=== PATIENT | female | born 1955 | race Caucasian/White ===

== ENCOUNTER 2016-08-06 13:50 | Emergency (ER) | payer BC, OTHER ==
[2016-08-06 13:56] VITALS: RESP 18
[2016-08-06] MEDS ORDERED: methylPREDNISolone SOD SUCCI 125 MG/2 ML VIAL IV STA (14:30)
[2016-08-06] MEDS ORDERED: IPRATROPIUM-ALBUTEROL 3 ML NEB INHALATION STA (14:30)
[2016-08-06] MEDS ORDERED: SODIUM CHLORIDE 0.9% 500 ML IV STA (14:30)
[2016-08-06] MEDS ORDERED: CHLORPHEN-HYDROcod 8-10mg/5ml 5 ML ORAL.SYRG PO STA (14:31)
--- NOTE | 2016-08-06 14:48 | ED ---
URI HPI - General Chief Complaint: Upper Respiratory Infection Stated Complaint: JOSE LUIS Time Seen by Provider: 08/06/16 14:14 Source: patient, family, RN notes reviewed Mode of arrival: wheelchair Limitations: no limitations - History of Present Illness Initial Comments: 61-year-old female presents emergency Department chief complaint shortness breath. Patient states she is has been on and off sick for the last 4 months. Patient states over the last few weeks she's had a severe cold, difficulty with her asthma. Patient saw primary care physician last and is most recent saw Dr. Valentine. Patient was placed on Augmentin, steroids. Patient states is not helping. She states she has severe coughing fit and she' s having increased shortness breath, wheezing. Patient states she is hot and cold flashes but normal fever. Denies any chills or night sweats. Patient states she uses nebulizer and inhalers. She states she's been taking all her medications as directed with no relief. Patient denies chest pain or palpitations. - Related Data Home Medications Medication Instructions Recorded Confirmed Ascorbic Acid [Vitamin C] 500 mg PO DAILY 09/18/13 08/06/16 Aspirin 81 mg PO DAILY 09/18/13 08/06/16 Multivitamin/Iron/Folic Acid 1 tab PO DAILY 09/18/13 08/06/16 [Centrum Complete Multivit Tab] Fish Oil 1400mg 3 tab PO BID 12/08/13 08/06/16 Montelukast [Singulair] 10 mg PO HS 12/08/13 08/06/16 Amoxic-Pot Clav 875-125Mg 1 tab PO Q12HR 08/06/16 08/06/16 [Augmentin 875-125] Calcium Carbonate/Vitamin D3 1 tab PO DAILY 08/06/16 08/06/16 [Calcium 600-Vit D3 200 Tablet] Citalopram Hydrobromide [CeleXA] 20 mg PO HS 08/06/16 08/06/16 Fenofibrate 160 mg PO DAILY 08/06/16 08/06/16 Folic Acid 1 mg PO DAILY 08/06/16 08/06/16 Lisinopril [Zestril] 5 mg PO HS 08/06/16 08/06/16 Mometasone/Formoterol [Dulera 200 2 puff INHALATION RT-BID 08/06/16 08/06/16 Mcg/5 Mcg Inhaler] cloNIDine HCL [Catapres] 0.1 mg PO BID 08/06/16 08/06/16 metFORMIN HCL ER [Glucophage Xr] 500 mg PO PC-SUPPER 08/06/16 08/06/16 predniSONE See Taper PO DAILY 08/06/16 08/06/16 Previous Rx's Medication Instructions Recorded CHLORPHEN-HYDROcod 8-10mg/5ml 5 ml PO Q12HR #120 ml 08/06/16 [Tussionex] Allergies Allergy/AdvReac Type Severity Reaction Status Date / Time benzoyl peroxide Allergy Swelling Verified 08/06/16 14:18 niacin Allergy Swelling Verified 08/06/16 14:18 SPF SUNSCREEN Allergy Unknown Rash/Hives Uncoded 08/06/16 13:56 Review of Systems ROS Statement: Those systems with pertinent positive or pertinent negative responses have been documented in the HPI. ROS Other: All systems not noted in ROS Statement are negative. Past Medical History Past Medical History: Asthma, Hyperlipidemia Additional Past Medical History / Comment(s): SEASONAL ALLERGIES,ENVIRONMENTAL ALLERGIES, BASAL CELL SKIN CANCER. STATES CURRENTLY HAS RASH ON HER ARM. DIVERTICULITIS SEPTEMBER 2013 History of Any Multi-Drug Resistant Organisms: None Reported Past Surgical History: Back Surgery, Tonsillectomy Additional Past Surgical History / Comment(s): CERVICAL FUSION, "TRANSVAGINAL TAPE" Past Anesthesia/Blood Transfusion Reactions: Motion Sickness, Postoperative Nausea & Vomiting (PONV) Past Psychological History: No Psychological Hx Reported Smoking Status: Never smoker Past Alcohol Use History: Rare Past Drug Use History: None Reported - Past Family History Mother Family Medical History: CVA/TIA, Hypertension General Exam Limitations: no limitations General appearance: alert, in no apparent distress Eye exam: Present: normal appearance, PERRL, EOMI. Absent: scleral icterus, conjunctival injection, periorbital swelling ENT exam: Present: normal exam, normal oropharynx, mucous membranes moist, TM's normal bilaterally Neck exam: Present: normal inspection, full ROM. Absent: tenderness, meningismus, lymphadenopathy Respiratory exam: Present: wheezes. Absent: normal lung sounds bilaterally, respiratory distress, rales, rhonchi, stridor Cardiovascular Exam: Present: regular rate, normal rhythm, normal heart sounds. Absent: systolic murmur, diastolic murmur, rubs, gallop, clicks Course Vital Signs 08/06/16 08/06/16 08/06/16 13:52 14:48 14:55 Temperature 98.0 F Pulse Rate 87 88 96 Respiratory 18 Rate Blood Pressure 189/85 O2 Sat by Pulse 96 Oximetry 08/06/16 15:53 Temperature 98.2 F Pulse Rate 84 Respiratory 18 Rate Blood Pressure 150/61 O2 Sat by Pulse 93 L Oximetry Medical Decision Making - Medical Decision Making 61-year-old female presented emergency department with chief complaint cough and congestion coughing fits. Patient has influenza. Patient is out of the treatment. For Tamiflu. Patient states she does feel better after cough syrup , breathing treatment. We discussed continuation breathing treatments at home and I'll write her prescription for cough syrup. Patient follow-up with primary care physician, nutter up. Return parameters were discussed. Patient also was offered admission for her asthma. She did decline. - Lab Data Result diagrams: 08/06/16 15:14 08/06/16 15:14 Lab Results 08/06/16 08/06/16 08/06/16 Range/Units 15:14 15:14 15:14 WBC 5.6 (3.8-10.6) k/uL RBC 4.03 (3.80-5.40) m/uL Hgb 13.0 (11.4-16.0) gm/dL Hct 36.8 (34.0-46.0) % MCV 91.4 (80.0-100.0) fL MCH 32.2 (25.0-35.0) pg MCHC 35.2 (31.0-37.0) g/dL RDW 13.6 (11.5-15.5) % Plt Count 353 (150-450) k/uL Neutrophils % 54 % Lymphocytes % 32 % Monocytes % 10 % Eosinophils % 0 % Basophils % 0 % Neutrophils # 3.0 (1.3-7.7) k/uL Lymphocytes # 1.8 (1.0-4.8) k/uL Monocytes # 0.6 (0-1.0) k/uL Eosinophils # 0.0 (0-0.7) k/uL Basophils # 0.0 (0-0.2) k/uL PT (9.0-12.0) sec INR (<1.1) APTT (22.0-30.0) sec Sodium 143 (137-145) mmol/L Potassium 4.0 (3.5-5.1) mmol/L Chloride 105 (98-107) mmol/L Carbon Dioxide 22 (22-30) mmol/L Anion Gap 16 mmol/L BUN 18 H (7-17) mg/dL Creatinine 0.74 (0.52-1.04) mg/dL Est GFR (MDRD) Af Amer >60 (>60 ml/min/1.73 sqM) Est GFR (MDRD) Non-Af >60 (>60 ml/min/1.73 sqM) Glucose 137 H (74-99) mg/dL Calcium 10.4 H (8.4-10.2) mg/dL Magnesium 1.5 L (1.6-2.3) mg/dL Total Bilirubin 0.6 (0.2-1.3) mg/dL AST 126 H (14-36) U/L ALT 162 H (9-52) U/L Alkaline Phosphatase 39 (38-126) U/L Troponin I (0.000-0.034) ng/mL Total Protein 7.3 (6.3-8.2) g/dL Albumin 4.5 (3.5-5.0) g/dL Influenza Type A RNA Not Detected (Not Detectd) Influenza Type B (PCR) Detected H (Not Detectd) 08/06/16 08/06/16 Range/Units 15:14 15:14 WBC (3.8-10.6) k/uL RBC (3.80-5.40) m/uL Hgb (11.4-16.0) gm/dL Hct (34.0-46.0) % MCV (80.0-100.0) fL MCH (25.0-35.0) pg MCHC (31.0-37.0) g/dL RDW (11.5-15.5) % Plt Count (150-450) k/uL Neutrophils % % Lymphocytes % % Monocytes % % Eosinophils % % Basophils % % Neutrophils # (1.3-7.7) k/uL Lymphocytes # (1.0-4.8) k/uL Monocytes # (0-1.0) k/uL Eosinophils # (0-0.7) k/uL Basophils # (0-0.2) k/uL PT 11.1 (9.0-12.0) sec INR 1.1 (<1.1) APTT 23.6 (22.0-30.0) sec Sodium (137-145) mmol/L Potassium (3.5-5.1) mmol/L Chloride (98-107) mmol/L Carbon Dioxide (22-30) mmol/L Anion Gap mmol/L BUN (7-17) mg/dL Creatinine (0.52-1.04) mg/dL Est GFR (MDRD) Af Amer (>60 ml/min/1.73 sqM) Est GFR (MDRD) Non-Af (>60 ml/min/1.73 sqM) Glucose (74-99) mg/dL Calcium (8.4-10.2) mg/dL Magnesium (1.6-2.3) mg/dL Total Bilirubin (0.2-1.3) mg/dL AST (14-36) U/L ALT (9-52) U/L Alkaline Phosphatase (38-126) U/L Troponin I <0.012 (0.000-0.034) ng/mL Total Protein (6.3-8.2) g/dL Albumin (3.5-5.0) g/dL Influenza Type A RNA (Not Detectd) Influenza Type B (PCR) (Not Detectd) 08/06/16 16:07 EKG performed at 15:03 normal sinus rhythm with a rate of 86, NE interval 138, QRS duration 96, QT/QTC 386/461 Disposition Clinical Impression: Influenza, Asthma Disposition: HOME SELF-CARE Condition: Stable Instructions: Influenza (ED) Additional Instructions: Please return to the Emergency Department if symptoms worsen or any other concerns. Prescriptions: CHLORPHEN-HYDROcod 8-10mg/5ml [Tussionex] 5 ml PO Q12HR #120 ml Time of Disposition: 16:10
[2016-08-06 15:24] LABS: Basophils % (A) 0 %; CH 33.1; CHCM 36.4; Eosinophils % (A) 0 %; HCT 36.8 % (34.0-46.0); HDW 2.83; Luc # (Auto) 0.19; Luc % (Auto) 3; Lymphocytes # (A) 1.8 k/uL (1.0-4.8); Lymphocytes % (A) 32 %; MCH 32.2 pg (25.0-35.0); MCHC 35.2 g/dL (31.0-37.0); MCV 91.4 fL (80.0-100.0); Mean Platelet Volume 6.4; Monocytes # (A) 0.6 k/uL (0-1.0); Monocytes % (A) 10 %; Neutrophils % (A) 54 %; RBC 4.03 m/uL (3.80-5.40); RDW 13.6 % (11.5-15.5); WBC 5.6 k/uL (3.8-10.6); WBC (Perox) 5.54
[2016-08-06 15:33] LABS: INR 1.1 (<1.1); Partial Thromboplastin Time 23.6 sec (22.0-30.0); Prothrombin Time 11.1 sec (9.0-12.0)
--- NOTE | 2016-08-06 15:33 | XR ---
EXAMINATION TYPE: XR chest 2V DATE OF EXAM: 08/06/2016 3:21 PM COMPARISON: 04/18/2016 HISTORY: Difficulty breathing TECHNIQUE: Frontal and lateral views of the chest are obtained. FINDINGS: There is no heart failure nor confluent pneumonic infiltrate. There are no hilar masses. C ervical spine fusion surgery is noted. Costophrenic angles are clear. IMPRESSION: Borderline cardiomegaly. No active cardiopulmonary disease. No change.
[2016-08-06 15:37] LABS: ALT 162 U/L (9-52); AST 126 U/L (14-36); Alkaline Phosphatase 39 U/L (38-126); Anion Gap 16 mmol/L; Blood Urea Nitrogen 18 mg/dL (7-17); Calcium 10.4 mg/dL (8.4-10.2); Carbon Dioxide 22 mmol/L (22-30); Chloride 105 mmol/L (98-107); Glucose 137 mg/dL (74-99); Magnesium 1.5 mg/dL (1.6-2.3); Non-African American GFR(MDRD) >60 (>60 ml/min/1.73 sqM); Sodium 143 mmol/L (137-145); Total Bilirubin 0.6 mg/dL (0.2-1.3); Total Protein 7.3 g/dL (6.3-8.2)
[2016-08-06 15:54] VITALS: BP 150/61; PULSE 84; TEMP 98.2
== END 2016-08-06 16:52 | disposition home or self-care (01) ==
LOC: EC 13:50
DX: J11.1 Influenza due to unidentified influenza virus with other respiratory manifestations (principal); J45.909 Unspecified asthma, uncomplicated; E78.5 Hyperlipidemia, unspecified; Z85.828 Personal history of other malignant neoplasm of skin; Z79.84 Long term (current) use of oral hypoglycemic drugs; Z79.899 Other long term (current) drug therapy; Z79.82 Long term (current) use of aspirin; Z88.8 Allergy status to other drugs, medicaments and biological substances; Z91.048 Other nonmedicinal substance allergy status
CPT/HCPCS: 36415; 94640; 93005; 80053; 83735; 84484; 85025; 85610; 85730; 87502; 71020; 99284; 96374; 96361 ×2; J2930

== ENCOUNTER 2016-08-18 09:29 | Inpatient (IN) | payer OTHER ==
[2016-08-18] MEDS ORDERED: IPRATROPIUM-ALBUTEROL 3 ML NEB INHALATION PRN (11:47)
[2016-08-18] MEDS ORDERED: RX INFO: IV CONTRAST WAS GIVEN 1 EACH MISC MISCELLANE PRN (11:51)
[2016-08-18] MEDS: IPRATROPIUM-ALBUTEROL 3 ML NEB INHALATION SCH ×3 (12:55→19:26)
[2016-08-18] MEDS: SODIUM CHLORIDE 0.9% 1,000 ML IV SCH (13:24)
[2016-08-18] MEDS: methylPREDNISolone SOD SUCCI 125 MG/2 ML VIAL IV SCH ×3 (13:28→23:24)
[2016-08-18 14:08] LABS: Basophils # (A) 0.1 k/uL (0-0.2); Basophils % (A) 1 %; CH 32.4; CHCM 34.3; Eosinophils # (A) 0.1 k/uL (0-0.7); Eosinophils % (A) 1 %; HCT 38.7 % (34.0-46.0); HDW 2.55; Luc # (Auto) 0.39; Luc % (Auto) 4; Lymphocytes # (A) 4.1 k/uL (1.0-4.8); Lymphocytes % (A) 41 %; MCH 31.9 pg (25.0-35.0); MCHC 33.6 g/dL (31.0-37.0); MCV 94.8 fL (80.0-100.0); Mean Platelet Volume 6.3; Monocytes # (A) 0.7 k/uL (0-1.0); Monocytes % (A) 7 %; Neutrophils # (A) 4.6 k/uL (1.3-7.7); Neutrophils % (A) 46 %; RBC 4.09 m/uL (3.80-5.40); RDW 13.4 % (11.5-15.5); WBC 9.9 k/uL (3.8-10.6); WBC (Perox) 10.45
[2016-08-18 14:19] LABS: Anion Gap 10 mmol/L; Blood Urea Nitrogen 18 mg/dL (7-17); Calcium 9.8 mg/dL (8.4-10.2); Carbon Dioxide 23 mmol/L (22-30); Chloride 107 mmol/L (98-107); Glucose 101 mg/dL (74-99); Non-African American GFR(MDRD) >60 (>60 ml/min/1.73 sqM); Potassium 3.9 mmol/L (3.5-5.1); Sodium 140 mmol/L (137-145)
[2016-08-18 15:04] LABS: Hemoglobin A1C 5.8 % (4.2-6.1)
[2016-08-18] MEDS: BENZONATATE 100 MG CAP PO SCH ×2 (15:29→20:27)
[2016-08-18] MEDS: HEPARIN SODIUM,PORCINE 5,000 UNIT/ML 1 ML VIAL SQ SCH ×2 (15:30→23:24)
[2016-08-18] MEDS: CHLORPHEN-HYDROcod 8-10mg/5ml 5 ML ORAL.SYRG PO SCH ×2 (15:30→20:35)
[2016-08-18] MEDS: AZITHROMYCIN 500 MG in SODIUM CHLORIDE 0.9% 250 ML IVPB SCH (15:30)
--- NOTE | 2016-08-18 17:11 | CT ---
EXAMINATION TYPE: CT angio chest DATE OF EXAM: 08/18/2016 4:55 PM COMPARISON: Correlation radiograph 08/06/2016. Also, CT abdomen from 09/18/2013. HISTORY: 61-year-old female with shortness of breath. TECHNIQUE: Contiguous axial scanning of the chest performed with IV Contrast, patient injected with 6 0 mL of Omnipaque 350. Coronal/sagittal MIP reconstructions performed. CT DLP: 276.9 mGycm Automated exposure control for dose reduction was used. FINDINGS: The heart is upper limits of normal in size with trace anterior pericardial fluid. Aorta is normal caliber with conventional arch vessel branching anatomy. Borderline satisfactory opacification of the pulmonary arterial system without evidence for pulmonary embolus. No thoracic lymphadenopathy. Mild diffuse bronchial wall thickening without consolidation or pleural effusion. Mild dependent atel ectasis is noted and additional strandy atelectasis in the left lower lobe. A 1.5 cm hypodensity in the central right hepatic lobe, axial image 130 appears to have been present on 09/18/2013 suggestive of a cyst. There is diffuse low attenuation of the hepatic parenchyma. Bones: Endplate spondylosis throughout the thoracic spine. Partially visualized ACDF hardware. Focal sclerosis with stippled appearance of the L1 vertebral body most suggestive of a fatty matrix hemangi brittanie. IMPRESSION: 1. NO EVIDENCE FOR PULMONARY EMBOLUS. 2. MILD DIFFUSE BRONCHIAL WALL THICKENING COULD REPRESENT BRONCHITIS OR CHRONIC ASTHMA. OTHERWISE, NO ACUTE PULMONARY PROCESS. 3. HEPATIC STEATOSIS. CORRELATE WITH LFT's, LIVER PROFILE, AND PATIENT RISK FACTORS.
--- NOTE | 2016-08-18 17:31 | P.CNPUL ---
History of Present Illness Consult date: 08/18/16 Chief complaint: asthma History of present illness: This 61-year-old female patient was sent over from our office because of increased shortness of breath. The patient was having increased asthma activity and shortness of breath and chest tightness and wheezing. The patient was being followed up by Dr. Valentine on outpatient basis. The patient had a positive methacholine general shows earlier this year and the patient was found to be positive test. Since then the patient was kept on a combination of Dulera and Singulair. She continued to have increased dyspnea, chest tightness and wheezing and poor asthma control. She has received multiple courses of antibiotics and steroids without any improvement. Based on that, the patient was admitted today to the hospital for inpatient treatment with systemic steroids. The computed tomography scan of the chest was also ordered. She is doing well. She has a congested cough. No pleurisy. No hemoptysis. She is known to have multiple vitamin mental ALLERGIES. No aspiration. No heartburn. No skin rashes or eczema. No smoking. No exposure to any respiratory irritants or respiratory toxic material. She has been exposed to secondhand cigarette smoking. She is a lifetime nonsmoker. Review of Systems 12 point review of system was done and the positive findings are reported in the history of present illness Past Medical History Past Medical History: Asthma, Hyperlipidemia, Hypertension, Skin Disorder Additional Past Medical History / Comment(s): SEASONAL ALLERGIES, ENVIRONMENTAL ALLERGIES, ALOT OF ALLERGIES, NIDDM TYPE II, PSORIASIS, BASAL CELL SKIN CANCER WITH REMOVAL, DIVERTICULAR DX, . History of Any Multi-Drug Resistant Organisms: None Reported Past Surgical History: Orthopedic Surgery, Tonsillectomy Additional Past Surgical History / Comment(s): CERVICAL FUSION WITH PLATE, BASAL CELL SKIN CANCER REMOVED FROM FOREHEAD, COLONOSCOPY, "TRANSVAGINAL TAPE" Past Anesthesia/Blood Transfusion Reactions: Motion Sickness, Postoperative Nausea & Vomiting (PONV) Past Psychological History: No Psychological Hx Reported Additional Psychological History / Comment(s): PT AND HER SPOUSE ARE CURRENTLY SELLING THEIR HOME. PT'S SPOUSE IS IN [place] WORKING, ONCE HOUSE SELLS, PT WILL JOIN HIM THERE. THEY HAVE A 11 YR OLD GRANDAUGHTER THAT LIVES WITH THEM. PT DOES NOT HAVE A GLUCOMETER. SHE HAS A NEBULIZER. SHE IS INDEPENDENT. Smoking Status: Never smoker Past Alcohol Use History: Rare Past Drug Use History: None Reported - Past Family History Father Family Medical History: Cancer Additional Family Medical History / Comment(s): PT WAS 5 YRS OLD WHEN HER FATHER OF PANCREATIC CANCER. Mother Family Medical History: CVA/TIA, Dementia, Hypertension Additional Family Medical History / Comment(s): MOTHER HAD SEVERAL TIAS. SHE IS Medications and Allergies Home Medications Medication Instructions Recorded Confirmed Type Ascorbic Acid [Vitamin C] 500 mg PO DAILY 09/18/13 08/18/16 History Aspirin 81 mg PO DAILY 09/18/13 08/18/16 History Multivitamin/Iron/Folic Acid 1 tab PO DAILY 09/18/13 08/18/16 History [Centrum Complete Multivit Tab] Montelukast [Singulair] 10 mg PO HS 12/08/13 08/18/16 History Calcium Carbonate/Vitamin D3 1 tab PO DAILY 08/06/16 08/18/16 History [Calcium 600-Vit D3 200 Tablet] Citalopram Hydrobromide [CeleXA] 20 mg PO HS 08/06/16 08/18/16 History Fenofibrate 160 mg PO DAILY 08/06/16 08/18/16 History Folic Acid 1 mg PO DAILY 08/06/16 08/18/16 History Lisinopril [Zestril] 5 mg PO HS 08/06/16 08/18/16 History Mometasone/Formoterol [Dulera 200 2 puff INHALATION RT-BID 08/06/16 08/18/16 History Mcg/5 Mcg Inhaler] cloNIDine HCL [Catapres] 0.1 mg PO BID 08/06/16 08/18/16 History metFORMIN HCL ER [Glucophage Xr] 500 mg PO PC-SUPPER 08/06/16 08/18/16 History Adalimumab [Humira Crohn's] 40 mg SQ Q14D 08/18/16 08/18/16 History Albuterol Sulfate [Proair Hfa] 1 - 2 puff INHALATION RT-Q6H PRN 08/18/16 History [place]-3 Fatty Acids/Fish Oil [Fish 1 cap PO DAILY 08/18/16 08/18/16 History Oil 1,000 mg Softgel] Allergies Allergy/AdvReac Type Severity Reaction Status Date / Time benzoyl peroxide Allergy Swelling Verified 08/18/16 11:03 niacin Allergy Swelling Verified 08/18/16 11:03 SPF SUNSCREEN Allergy Unknown Rash/Hives Uncoded 08/06/16 13:56 Physical Exam Vitals: Vital Signs Pulse 08/18/16 13:12 62 08/18/16 12:55 64 Intake and Output 08/17/16 08/18/16 08/18/16 22:59 06:59 14:59 Other: Weight 71.668 kg Patient Weight 08/19/16 06:59 Weight 71.668 kg Head exam was generally normal. There was no scleral icterus or corneal arcus. Mucous membranes were moist.Neck was supple and without jugular venous distension, thyromegaly, or carotid bruits. Carotids were easily palpable bilaterally. There was no adenopathy. Lung sounds are diminished bilaterally along with some scattered external wheezes throughout the lung li.Cardiac exam revealed the PMI to be normally situated and sized. The rhythm was regular and no extrasystoles were noted during several minutes of auscultation. The first and second heart sounds were normal and physiologic splitting of the second heart sound was noted. There were no murmurs, rubs, clicks, or gallops.Abdominal exam revealed normal bowel sounds. The abdomen was soft, non- tender, and without masses, organomegaly, or appreciable enlargement of the abdominal aorta.Examination of the extremities revealed easily palpable radial, femoral and pedal pulses. There was no cyanosis, clubbing or edema. Results - Laboratory Findings CBC and BMP: 08/18/16 13:48 08/18/16 13:48 Abnormal lab findings: Abnormal Labs 08/18/16 13:48 BUN 18 H Glucose 101 H - Diagnostic Findings Chest x-ray: image reviewed Assessment and Plan Plan: Assessment 1 severe persistent bronchial asthma, in acute exacerbation. The patient has had poorly controlled asthma on outpatient basis and she has failed outpatient treatment with bronchodilators and steroids and maintenance inhalers. She has also received various courses of antibiotics. 2 shortness of breath secondary to above, cough secondary to above 3 chronic immunosuppression secondary to intake of Humira for psoriasis 4 positive methacholine challenge test 5 multiple seasonal and environmental ALLERGIES 6 diabetes mellitus on metformin 7 psoriasis maintained on Humira on outpatient basis 8 basal cell carcinoma 9 diverticulosis Plan Continue bronchodilators. Continue systemic steroids. Continue antibiotics. Computed tomography scan of the chest. Bronchoscopy based on the fact that the patient is been in a suppressed by Humira on outpatient basis for prolonged period of time. We'll consider bronchoscopy/bronchioloalveolar lavage if no improvement within next 24-48 hours.
[2016-08-18 17:49] VITALS: RESP 16
[2016-08-18] MEDS: FORMOTEROL FUMARATE 20 MCG/2 ML NEBU INHALATION SCH (19:26)
[2016-08-18] MEDS: BUDESONIDE 1 MG/2 ML NEBU INHALATION SCH (19:26)
[2016-08-18] MEDS: metFORMIN 500 MG TAB PO SCH (19:42)
[2016-08-18] MEDS ORDERED: NON-FORMULARY DRUG (Mometasone/Formoterol [Dulera 200 Mcg/5 Mcg Inhaler] 2 PUFF) INHALATION SCH (20:00)
[2016-08-18 20:05] LABS: Glucose,Whole Blood 187 mg/dL (75-99)
[2016-08-18] MEDS: MONTELUKAST 10 MG TAB PO SCH (20:30)
[2016-08-18] MEDS: CITALOPRAM HYDROBROMIDE 20 MG TAB PO SCH (20:30)
[2016-08-18] MEDS: cloNIDine HCL 0.1 MG TAB PO SCH (20:30)
[2016-08-18] MEDS: LISINOPRIL 5 MG TAB PO SCH (20:30)
[2016-08-18] MEDS: INSULIN LISPRO (humaLOG) 300 UNIT/3 ML VIAL SQ SCH (20:35)
[2016-08-19] MEDS: methylPREDNISolone SOD SUCCI 125 MG/2 ML VIAL IV SCH ×3 (06:19→17:24)
[2016-08-19] MEDS: FORMOTEROL FUMARATE 20 MCG/2 ML NEBU INHALATION SCH ×2 (07:12→19:20)
[2016-08-19] MEDS: IPRATROPIUM-ALBUTEROL 3 ML NEB INHALATION SCH ×4 (07:12→19:20)
[2016-08-19] MEDS: BUDESONIDE 1 MG/2 ML NEBU INHALATION SCH ×2 (07:12→19:20)
[2016-08-19 07:25] LABS: Glucose,Whole Blood 150 mg/dL (75-99)
[2016-08-19] MEDS: SODIUM CHLORIDE 0.9% 1,000 ML IV SCH ×2 (08:37→14:10)
[2016-08-19] MEDS: ASCORBIC ACID 500 MG TAB PO SCH (08:40)
[2016-08-19] MEDS: cloNIDine HCL 0.1 MG TAB PO SCH ×2 (08:40→20:59)
[2016-08-19] MEDS: HEPARIN SODIUM,PORCINE 5,000 UNIT/ML 1 ML VIAL SQ SCH ×2 (08:40→20:59)
[2016-08-19] MEDS: ASPIRIN 81 MG CHEW PO SCH (08:40)
[2016-08-19] MEDS: metFORMIN 500 MG TAB PO SCH ×2 (08:40→17:25)
[2016-08-19] MEDS: FOLIC ACID 1 MG TAB PO SCH (08:40)
[2016-08-19] MEDS: FENOFIBRATE 160 MG TAB PO SCH (08:40)
[2016-08-19] MEDS: INSULIN LISPRO (humaLOG) 300 UNIT/3 ML VIAL SQ SCH ×4 (08:42→20:59)
[2016-08-19] MEDS: CHLORPHEN-HYDROcod 8-10mg/5ml 5 ML ORAL.SYRG PO SCH ×2 (08:52→21:08)
[2016-08-19 10:24] LABS: Hemoglobin A1C 5.8 % (4.2-6.1)
[2016-08-19] MEDS: BENZONATATE 100 MG CAP PO SCH ×3 (11:16→20:58)
[2016-08-19 12:09] LABS: Glucose,Whole Blood 131 mg/dL (75-99)
--- NOTE | 2016-08-19 12:46 | P.PN ---
Subjective This 61-year-old female patient was sent over from our office because of increased shortness of breath. The patient was having increased asthma activity and shortness of breath and chest tightness and wheezing. The patient was being followed up by Dr. Valentine on outpatient basis. The patient had a positive methacholine general shows earlier this year and the patient was found to be positive test. Since then the patient was kept on a combination of Dulera and Singulair. She continued to have increased dyspnea, chest tightness and wheezing and poor asthma control. She has received multiple courses of antibiotics and steroids without any improvement. Based on that, the patient was admitted today to the hospital for inpatient treatment with systemic steroids. The computed tomography scan of the chest was also ordered. She is doing well. She has a congested cough. No pleurisy. No hemoptysis. She is known to have multiple vitamin mental ALLERGIES. No aspiration. No heartburn. No skin rashes or eczema. No smoking. No exposure to any respiratory irritants or respiratory toxic material. She has been exposed to secondhand cigarette smoking. She is a lifetime nonsmoker On 08/19/2016, this patient is feeling much better. She is less short of breath. There has been significant improvement in the chest congestion and chest tightness and wheezing that was noted yesterday. CAT scan of the chest showed peribronchial thickening probably secondary to either asthma or an acute bronchitis. Clinically however the patient is stable. She is on steroids and antibiotics and bronchodilators. She is ambulating pH is on no oxygen. Objective - Vital Signs Vital signs: Vital Signs Temp 97.2 F L 08/19/16 07:00 Pulse 92 08/19/16 11:06 Resp 16 08/19/16 08:00 BP 129/61 08/19/16 07:00 Pulse Ox 96 08/19/16 07:00 Intake & Output 08/18/16 08/19/16 08/19/16 18:59 06:59 18:59 Intake Total 1400 1640 360 Balance 1400 1640 360 Weight 71.668 kg Intake: IV 1400 Sodium Chloride 0.9% 1, 600 000 ml @ 75 mls/hr IV . [id number] JORGE Rx#:[id number] cefTRIAXone 1,000 mg In 800 Sodium Chloride 0.9% 50 ml @ 100 mls/hr IVPB DAILY@1200 JORGE Rx#: [id number] Intake, IV Titration 1400 Amount Sodium Chloride 0.9% 1, 1300 000 ml @ 75 mls/hr IV . [id number] JORGE Rx#:[id number] cefTRIAXone 1,000 mg In 100 Sodium Chloride 0.9% 50 ml @ 100 mls/hr IVPB DAILY@1200 JORGE Rx#: [id number] Oral 240 360 Other: # Voids 1 3 1 - Exam The patient appeared well nourished and normally developed. Vital signs as documented. Head exam is unremarkable. No scleral icterus or corneal arcus noted. Neck is without jugular venous distension, thyromegaly, or carotid bruits. Carotid upstrokes are brisk bilaterally. Lungs show improved wheezing and bronchospasm compared to yesterday's evaluation. Cardiac exam reveals the PMI to be normally sized and situated. Rhythm is regular. First and second heart sounds normal. No murmurs, rubs or gallops. Abdominal exam reveals normal bowel sounds, no masses, no organomegaly and no aortic enlargement. Extremities are nonedematous and both femoral and pedal pulses are normal. - Labs CBC & Chem 7: 08/18/16 13:48 08/18/16 13:48 Labs: Abnormal Lab Results - Last 24 Hours (Table) 08/18/16 08/18/16 08/19/16 Range/Units 13:48 20:01 07:12 BUN 18 H (7-17) mg/dL Glucose 101 H (74-99) mg/dL POC Glucose (mg/dL) 187 H 150 H (75-99) mg/dL 08/19/16 Range/Units 12:06 BUN (7-17) mg/dL Glucose (74-99) mg/dL POC Glucose (mg/dL) 131 H (75-99) mg/dL Assessment and Plan Plan: Assessment 1 severe persistent bronchial asthma, in acute exacerbation. The patient has had poorly controlled asthma on outpatient basis and she has failed outpatient treatment with bronchodilators and steroids and maintenance inhalers. She has also received various courses of antibiotics. 2 shortness of breath secondary to above, cough secondary to above 3 chronic immunosuppression secondary to intake of Humira for psoriasis 4 positive methacholine challenge test 5 multiple seasonal and environmental ALLERGIES 6 diabetes mellitus on metformin 7 psoriasis maintained on Humira on outpatient basis 8 basal cell carcinoma 9 diverticulosis Plan Review the CAT scan of the chest and the findings are essentially nonspecific. Clinically improving. Continue the bronchodilators. Continue the systemic steroids. Continue antibiotics. Taper this patient to oral prednisone as of tomorrow and discharge possibly if she continues to show steady signs of improvement. She was reassured.
--- NOTE | 2016-08-19 13:01 | HP ---
H&P AND DISCHARGE SUMMARY DATE OF ADMISSION: Patient is a very pleasant 61-year-old female who came in with complaints of shortness of breath and cough, unable to bring up anything. She has been having this wheezing and tightness of the chest; was seeing Dr. Valentine on an outpatient basis. She was sent in here. Patient was wheezing quite a bit. Patient was on Dulera and Singulair for asthma exacerbation ( ) significant improvement. Patient was apparently on systemic steroids as well. She received multiple courses of antibiotics without any improvement. Patient was admitted for systemic steroids. Patient has significant improvement today. Patient has fair to good air entry into bilateral lung li. Patient is willing to be discharged today. Patient is unable to bring up anything. Will ambulate the patient. If she is doing okay, patient will be discharged today. Although patient has been suffering with these symptoms going back to March, patient has multiple seasonal allergies along with eczema and also psoriasis. Patient is on Humira for psoriasis. Patient has been exposed to secondhand smoking but denied any personal smoking history. REVIEW OF SYSTEMS: CONSTITUTIONAL: No fever, no malaise, no fatigue. HEENT: No recent visual problems or hearing problems. Denied any sore throat. CARDIOVASCULAR: No chest pain, orthopnea, PND, no palpitations, no syncope. PULMONARY: As described in HPI. Patient denied any fever or chills. GASTROINTESTINAL: No diarrhea, no nausea, no vomiting, no abdominal pain. Normoactive bowel sounds. NEUROLOGICAL: No headaches, no weakness, no numbness. HEMATOLOGICAL: Denies any bleeding or petechiae. GENITOURINARY: Denies any burning micturition, frequency, or urgency. MUSCULOSKELETAL/RHEUMATOLOGICAL: Denies any joint pain, swelling, or any muscle pain. ENDOCRINE: Denies any polyuria or polydipsia. The rest of the 14 point review of systems is negative. Chest CT did not show any pneumonic process or any pulmonary embolism. Past medical history is significant for: 1. Asthma. 2. Hyperlipidemia. 3. Hypertension. 4. Psoriasis. 5. Multiple seasonal allergies. 6. Basal cell carcinoma ( ) Patient denied any smoking, alcohol abuse or any drug abuse. FAMILY HISTORY: Father had pancreatic cancer. Mother had CVA, dementia and hypertension. Home medications include: 1. Ascorbic acid. 2. Aspirin. 3. Multivitamin. 4. Montelukast. 5. Citalopram. 6. Fenofibrate. 7. Folic acid. 8. Lisinopril. 9. Mometasone/formoterol. 10. Clonidine. 11. Metformin. 12. Humira. 13. Albuterol. 14. [place]-3 fatty acids. ALLERGIES: BENZOYL PEROXIDE and NIACIN. PHYSICAL EXAMINATION: VITAL SIGNS: Temperature 97.2, pulse of 92, respiratory rate of 16. Blood pressure is 129/61. Saturating at 96% on room air. GENERAL: The patient is alert and oriented x3, not in any acute distress. Well developed, well nourished. HEENT: Pupils are round and equally reacting to light. EOMI. No scleral icterus. No conjunctival pallor. Normocephalic, atraumatic. No pharyngeal erythema. No thyromegaly. CARDIOVASCULAR: S1 and S2 present. No murmurs, rubs, or gallops. PULMONARY: Chest is clear to auscultation, no wheezing or crackles. ABDOMEN: Soft, nontender, nondistended, normoactive bowel sounds. No palpable organomegaly. MUSCULOSKELETAL: No joint swelling or deformity. EXTREMITIES: No cyanosis, clubbing, or pedal edema. NEUROLOGICAL: Gross neurological examination did not reveal any focal deficits. SKIN: No rashes. LABORATORY DATA: CBC, CMP essentially within normal limits. Chest CT as mentioned above. Hemoglobin A1C 5.8. ASSESSMENT AND PLAN: 1. Acute asthma exacerbation. Patient had status asthmaticus when she was admitted. Patient has severe persistent asthma as an outpatient. Patient significantly improved with bronchodilators and systemic steroids. Patient will be discharged on weaning dose of steroids. Personally patient may not benefit much from antibiotics. I do not believe patient will benefit from antibiotics, but since she has an immunosuppressive state, I will go ahead and give her empiric azithromycin for 5 days. 2. Acute hypoxic respiratory failure secondary to asthma exacerbation. 3. Chronic immunosuppression because of Humira. 4. Psoriasis, for which patient is receiving Humira. 5. Type 2 diabetes mellitus. Patient is on metformin with well-controlled blood sugars. Patient can continue on that medication. 6. Basal cell carcinoma. 7. Diverticulosis. 8. Hypertension. Blood pressure is fairly well controlled. Patient will continue her home medications. Patient will be discharged today. This dictation is both H&P and discharge summary. Patient will follow up with Dr. Valentine in about 3 to 7 days, Dr. Walter Calle in about 3 to 7 days. Activity as tolerated. Cardiac and diabetic 1800-calorie diet. This dictation is both H&P and discharge summary.
[2016-08-19] MEDS: AZITHROMYCIN 500 MG in SODIUM CHLORIDE 0.9% 250 ML IVPB SCH (14:10)
[2016-08-19 17:20] LABS: Glucose,Whole Blood 149 mg/dL (75-99)
[2016-08-19 20:29] LABS: Glucose,Whole Blood 163 mg/dL (75-99)
[2016-08-19] MEDS: MONTELUKAST 10 MG TAB PO SCH (20:58)
[2016-08-19] MEDS: LISINOPRIL 5 MG TAB PO SCH (20:58)
[2016-08-19] MEDS: CITALOPRAM HYDROBROMIDE 20 MG TAB PO SCH (20:58)
[2016-08-20] MEDS: methylPREDNISolone SOD SUCCI 125 MG/2 ML VIAL IV SCH ×3 (00:30→12:57)
[2016-08-20] MEDS: FORMOTEROL FUMARATE 20 MCG/2 ML NEBU INHALATION SCH (07:18)
[2016-08-20] MEDS: IPRATROPIUM-ALBUTEROL 3 ML NEB INHALATION SCH ×2 (07:18→11:33)
[2016-08-20] MEDS: BUDESONIDE 1 MG/2 ML NEBU INHALATION SCH (07:18)
[2016-08-20 07:33] LABS: Glucose,Whole Blood 151 mg/dL (75-99)
[2016-08-20] MEDS: SODIUM CHLORIDE 0.9% 1,000 ML IV SCH (07:45)
[2016-08-20] MEDS: ASCORBIC ACID 500 MG TAB PO SCH (07:48)
[2016-08-20] MEDS: cloNIDine HCL 0.1 MG TAB PO SCH (07:48)
[2016-08-20] MEDS: FOLIC ACID 1 MG TAB PO SCH (07:48)
[2016-08-20] MEDS: FENOFIBRATE 160 MG TAB PO SCH (07:48)
[2016-08-20] MEDS: HEPARIN SODIUM,PORCINE 5,000 UNIT/ML 1 ML VIAL SQ SCH (07:48)
[2016-08-20] MEDS: ASPIRIN 81 MG CHEW PO SCH (07:49)
[2016-08-20] MEDS: metFORMIN 500 MG TAB PO SCH (07:49)
[2016-08-20] MEDS: BENZONATATE 100 MG CAP PO SCH (07:49)
[2016-08-20] MEDS: CHLORPHEN-HYDROcod 8-10mg/5ml 5 ML ORAL.SYRG PO SCH (07:49)
[2016-08-20 08:02] VITALS: BP 148/70; TEMP 97
[2016-08-20] MEDS: INSULIN LISPRO (humaLOG) 300 UNIT/3 ML VIAL SQ SCH ×2 (08:27→12:56)
--- NOTE | 2016-08-20 10:03 | DS ---
DATE OF ADMISSION: 08/18/2016 DATE OF DISCHARGE: Patient is admitted with asthma exacerbation. Patient is clinically doing well and will be discharged today. Patient was seen and examined on the day of discharge. Vitals are stable. PHYSICAL EXAMINATION: GENERAL: The patient is alert and oriented x3, not in any acute distress. Well developed, well nourished. HEENT: Pupils are round and equally reacting to light. EOMI. No scleral icterus. No conjunctival pallor. Normocephalic, atraumatic. No pharyngeal erythema. No thyromegaly. CARDIOVASCULAR: S1 and S2 present. No murmurs, rubs, or gallops. PULMONARY: Chest is clear to auscultation, no wheezing or crackles. ABDOMEN: Soft, nontender, nondistended, normoactive bowel sounds. No palpable organomegaly. MUSCULOSKELETAL: No joint swelling or deformity. EXTREMITIES: No cyanosis, clubbing, or pedal edema. NEUROLOGICAL: Gross neurological examination did not reveal any focal deficits. SKIN: No rashes. FINAL DIAGNOSES: 1. Acute hypoxic respiratory failure secondary to asthma exacerbation, which improved. Patient has chronic severe persistent asthma. 2. Chronic immunosuppression because of Humira. 3. Psoriasis for which patient is on Humira. 4. Type 2 diabetes mellitus. Continue with metformin. 5. History of basal carcinoma. 6. Diverticulosis. 7. Hypertension. PLAN: Patient will be discharged today. Please refer to my depart summary and patient will follow with Dr. Marty Valentine in one week, Dr. Walter Calle in one week. Activity as tolerated. Diabetic 1800 calorie diet. I spent greater than 35 minutes in total discharge process.
[2016-08-20 11:43] VITALS: PULSE 86
[2016-08-20 11:50] LABS: Glucose,Whole Blood 119 mg/dL (75-99)
--- NOTE | 2016-08-20 13:27 | P.PN ---
Subjective This 61-year-old female patient was sent over from our office because of increased shortness of breath. The patient was having increased asthma activity and shortness of breath and chest tightness and wheezing. The patient was being followed up by Dr. Valentine on outpatient basis. The patient had a positive methacholine general shows earlier this year and the patient was found to be positive test. Since then the patient was kept on a combination of Dulera and Singulair. She continued to have increased dyspnea, chest tightness and wheezing and poor asthma control. She has received multiple courses of antibiotics and steroids without any improvement. Based on that, the patient was admitted today to the hospital for inpatient treatment with systemic steroids. The computed tomography scan of the chest was also ordered. She is doing well. She has a congested cough. No pleurisy. No hemoptysis. She is known to have multiple vitamin mental ALLERGIES. No aspiration. No heartburn. No skin rashes or eczema. No smoking. No exposure to any respiratory irritants or respiratory toxic material. She has been exposed to secondhand cigarette smoking. She is a lifetime nonsmoker On 08/19/2016, this patient is feeling much better. She is less short of breath. There has been significant improvement in the chest congestion and chest tightness and wheezing that was noted yesterday. CAT scan of the chest showed peribronchial thickening probably secondary to either asthma or an acute bronchitis. Clinically however the patient is stable. She is on steroids and antibiotics and bronchodilators. She is ambulating pH is on no oxygen. On 08/20/2016, the patient is feeling even better. No major respiratory difficulties. Cough and chest congestion and wheezing has subsided and asthma is under better control. No complaints otherwise for now. Objective - Vital Signs Vital signs: Vital Signs Temp 97.0 F L 08/20/16 07:00 Pulse 86 08/20/16 11:43 Resp 16 08/20/16 08:00 BP 148/70 08/20/16 07:00 Pulse Ox 94 L 08/20/16 07:00 Intake & Output 08/19/16 08/20/16 08/20/16 18:59 06:59 18:59 Intake Total 685 1140 Balance 685 1140 Weight 71.668 kg 71.668 kg Intake: IV 100 600 Sodium Chloride 0.9% 1, 600 000 ml @ 75 mls/hr IV . [id number] JORGE Rx#:[id number] cefTRIAXone 1,000 mg In 100 Sodium Chloride 0.9% 50 ml @ 100 mls/hr IVPB DAILY@1200 [facility] Rx#: [id number] Intake, IV Titration 225 Amount Azithromycin 500 mg In 125 Sodium Chloride 0.9% 250 ml @ 125 mls/hr IVPB Q24H JORGE Rx#:[id number] cefTRIAXone 1,000 mg In 100 Sodium Chloride 0.9% 50 ml @ 100 mls/hr IVPB DAILY@1200 [facility] Rx#: [id number] Oral 360 540 Other: # Voids 4 1 1 # Bowel Movements 1 1 - Exam The patient appeared well nourished and normally developed. Vital signs as documented. Head exam is unremarkable. No scleral icterus or corneal arcus noted. Neck is without jugular venous distension, thyromegaly, or carotid bruits. Carotid upstrokes are brisk bilaterally. Lungs are clear to auscultation and percussion. Cardiac exam reveals the PMI to be normally sized and situated. Rhythm is regular. First and second heart sounds normal. No murmurs, rubs or gallops. Abdominal exam reveals normal bowel sounds, no masses , no organomegaly and no aortic enlargement. Extremities are nonedematous and both femoral and pedal pulses are normal. - Labs CBC & Chem 7: 08/18/16 13:48 08/18/16 13:48 Labs: Abnormal Lab Results - Last 24 Hours (Table) 08/19/16 08/19/16 08/20/16 Range/Units 17:15 20:27 07:30 POC Glucose (mg/dL) 149 H 163 H 151 H (75-99) mg/dL 08/20/16 Range/Units 11:48 POC Glucose (mg/dL) 119 H (75-99) mg/dL Assessment and Plan Plan: Assessment 1 severe persistent bronchial asthma, in acute exacerbation, recovering 2 shortness of breath secondary to above, cough secondary to above, recovering 3 chronic immunosuppression secondary to intake of Humira for psoriasis 4 positive methacholine challenge test 5 multiple seasonal and environmental ALLERGIES 6 diabetes mellitus on metformin 7 psoriasis maintained on Humira on outpatient basis 8 basal cell carcinoma 9 diverticulosis Plan Discharge the patient home on a prednisone burst taper, Dulera, Singulair, albuterol about treatments and follow-up with Dr. Valentine and office
[2016-08-21] MEDS ORDERED: AZITHROMYCIN 500 MG TAB PO SCH (14:00)
== END 2016-08-20 13:15 | disposition home or self-care (01) | DRG 202 ==
LOC: 5MS5E 09:48
PROVIDERS: ADMIT Hospitalist; ATTEND Hospitalist
DX: J45.52 Severe persistent asthma with status asthmaticus (principal); J96.01 Acute respiratory failure with hypoxia; K50.90 Crohn's disease, unspecified, without complications; E11.9 Type 2 diabetes mellitus without complications; I10 Essential (primary) hypertension; E78.5 Hyperlipidemia, unspecified; K57.90 Diverticulosis of intestine, part unspecified, without perforation or abscess without bleeding; L30.9 Dermatitis, unspecified; L40.9 Psoriasis, unspecified; Z79.82 Long term (current) use of aspirin; Z79.84 Long term (current) use of oral hypoglycemic drugs; Z79.899 Other long term (current) drug therapy; Z82.49 Family history of ischemic heart disease and other diseases of the circulatory system; Z85.828 Personal history of other malignant neoplasm of skin; Z77.22 Contact with and (suspected) exposure to environmental tobacco smoke (acute) (chronic)
CPT/HCPCS: 71275; 80048; 83036; 85025; 94640